=== PATIENT | male | born 1990 | race Caucasian/White ===

== ENCOUNTER 2022-04-30 10:46 | Emergency (ER) | payer MEDICAID, SELFPAY ==
[2022-04-30 10:47] VITALS: BP 127/69; PULSE 68; RESP 18; TEMP 36.8; O2SAT 100; BMI 31.1
--- NOTE | 2022-04-30 11:02 | ED.GENADULT ---
HPI - General Adult General Chief complaint: General Medical Stated complaint: missed methadone appointment Time Seen by Provider: 04/30/22 10:52 Source: patient Mode of arrival: ambulatory Limitations: no limitations History of Present Illness HPI narrative: 32-year-old male with history of anxiety, depression, opiate use disorder here with reports of seeking methadone dose. Patient tells me he was at a [facility] in [place] and on he transitioned to [facility] on [facility]. His last dose of methadone was yesterday 100 mg. He received at a clinic in [place]. He was supposed to go to a clinic and [place] today however arrived after they closed. He was unable to receive a dose today. Patient also complaining of depression, anxiety. He denies any suicidal thoughts. He was recently started on Prozac but feels like it is not helping. He would like to speak to crisis and discussed his medications. He does for primary care doctor that prescribes his medications. He is waiting for a psychiatrist. He does have a therapist. Related Data Home Medications Medication Instructions Recorded Confirmed clonazepam 0.5 mg tablet 1 tab PO BID 04/30/22 04/30/22 fluoxetine 20 mg capsule 1 cap PO DAILY 04/30/22 04/30/22 hydroxyzine HCl 25 mg tablet 1 tab PO TID PRN anxiety 04/30/22 04/30/22 ibuprofen 400 mg tablet 1 tab PO Q4H PRN pain 04/30/22 04/30/22 melatonin 3 mg tablet 1 tab PO BEDTIME PRN Sleep 04/30/22 04/30/22 methadone 10 mg/mL oral concentrate 100 mg PO DAILY 04/30/22 04/30/22 nicotine (polacrilex) 4 mg buccal 1 cornelio PO Q2H PRN cravings 04/30/22 04/30/22 lozenge nicotine 21 mg/24 hr daily 1 patch topical DAILY 04/30/22 04/30/22 transdermal patch trazodone 50 mg tablet 1 tab PO BEDTIME 04/30/22 04/30/22 Allergies Allergy/AdvReac Type Severity Reaction Status Date / Time No Known Allergies Allergy Verified 04/30/22 10:51 Review of Systems Review of Systems: Yes all other systems are reviewed and are negative Constitutional: Constitutional: Reports no additional constitutional complaints, Denies body ache(s), Denies chills, Denies fever(s), Denies headache(s) and Denies weakness Eyes: Eyes: Reports no additional eye complaints and Denies change in vision ENT: Reports system reviewed and no additional complaints, except as documented, Denies dizziness, Denies headache(s), Denies nasal congestion, Denies nasal discharge and Denies neck pain Cardiovascular: Cardiovascular: Reports no additional cardiovascular complaints, Denies chest pain, Denies leg edema and Denies dyspnea Respiratory: Respiratory: Reports no additional respiratory complaints, Denies cough and Denies dyspnea Gastrointestinal: Gastrointestinal: Reports no additional gastrointestinal complaints, Denies abdominal pain, Denies diarrhea, Denies nausea and Denies vomiting Genitourinary: Genitourinary: Denies urinary incontinence Musculoskeletal: Musculoskeletal: Reports no additional musculoskeletal complaints, Denies back pain, Denies arthralgias, Denies joint swelling, Denies neck pain, Denies numbness and Denies tingling Integumentary/Breasts: Skin/Breast: Reports system reviewed and no additional complaints, except as docu and Denies rash Neurologic: Reports system reviewed and no additional complaints, except as documented, Denies dizziness, Denies headache(s), Denies numbness, Denies tingling and Denies weakness Psychiatric: Psychiatric: Reports anxiety, Reports depression, Denies homicidal ideation and Denies suicidal ideation [facility] Past Medical History Attestation statement: The following information was validated with the patient. Source: old records reviewed and nursing notes reviewed Social History Social History Advance Directives: No Advance Directives Information Provided: No Physical Exam ED Vital Signs: Vital Signs - 24 hr 04/30/22 10:47 04/30/22 12:00 Temperature 98.2 F Pulse Rate 68 18 L Respiratory Rate 18 Blood Pressure 127/69 Pulse Oximetry 100 Oxygen Delivery Method Room Air BMI result Body Mass Index 31.1 Const General: cooperative, healthy appearing and comfortable Orientation/consciousness: patient oriented x3 Limitations: no limitations HENMT Head: Yes normal to inspection Ears: hearing grossly normal bilaterally Eyes General: appearance normal, both eyes and all related structures Pupils: Equal, round and reactive pupils present Neck Neck: Yes normal visual inspection Chest Chest palpation & inspection: normal inspection of the chest Resp Effort & Inspection: normal respiratory effort Auscultation: clear to auscultation bilaterally Cardio Rate: regular rate Rhythm: regular rhythm Peripheral pulses: Peripheral pulses 2+ throughout GI Inspection: Yes normal to inspection Back/Spine/Pelvis Thoracic/Lumbar Spine: thoracic and lumbar spine normal to inspection Skin General skin exam: no rashes or lesions noted Neuro General: patient oriented x3 Cranial nerves: Yes CN's II-XII intact bilaterally and Yes Equal, round and reactive pupils present Course Course Course Narrative: 32-year-old male with a history of opiate use disorder, depression and anxiety here seeking his methadone dose as well as seeking to speak to crisis. No suicidal thoughts. No concern for acute ingestion or trauma. Nursing to verify his methadone dose. Will obtain a N consult Reevaluation(s) Reevaluation #1: Seen by care team Delay and patient receiving his methadone as he does not have his last dose letter. Nursing has attempted to reach his clinic but unable to. Patient is currently staying at [facility] on [facility] and contact was made with staff there to see if they have his last dose letter. Waiting to hear back Time: 13:45 Reevaluation #2: Methadone dose was confirmed and ordered. Patient to go back to [facility] Reviewed worrisome signs and symptoms of when to return to the emergency department. Comfortable discharge home. Time: 15:00 Medical Decision Making Medical Records Medical records reviewed: Yes I reviewed the patient's medical records. Lab Data Lab results reviewed: Yes I reviewed the patient's lab results. Labs: Lab Results 04/30/22 04/30/22 Range/Units 11:34 11:34 Urine Opiates Screen Not Detected (Not Detect) Urine Fentanyl Screen POSITIVE H (Not Detect) Ur Barbiturates Screen Not Detected (Not Detect) Ur Phencyclidine Scrn Not Detected (Not Detect) Ur Amphetamines Screen Not Detected (Not Detect) U Benzodiazepines Scrn POSITIVE H (Not Detect) Urine Cocaine Screen POSITIVE H (Not Detect) U Marijuana (THC) Screen Not Detected (Not Detect) COVID-19 ([facility]) Negative (Negative) COVID-19 Clin Com See Note Discharge Plan Discharge Clinical Impression: Depression, Medication refill Patient Disposition: Home, Self-Care Instructions: Depression (ED), Medicine Refill (ED) Additional Instructions: Follow-up with your outpatient providers You received your dose of methadone while you were here Prescriptions: No Action trazodone 50 mg tablet 1 tab PO BEDTIME clonazepam 0.5 mg tablet 1 tab PO BID melatonin 3 mg tablet 1 tab PO BEDTIME PRN (Reason: Sleep) ibuprofen 400 mg tablet 1 tab PO Q4H PRN (Reason: pain) nicotine 21 mg/24 hr patch 24 hour 1 patch topical DAILY hydroxyzine HCl 25 mg tablet 1 tab PO TID PRN (Reason: anxiety) fluoxetine 20 mg capsule 1 cap PO DAILY nicotine (polacrilex) 4 mg lozenge 1 cornelio PO Q2H PRN (Reason: cravings) methadone 10 mg/mL Concentrate 100 mg PO DAILY Referrals: Chalino Alston MD [Primary Care Provider] - 1 week (As needed) Interventions: ED Discharge Assessment Last Done: 04/30/22 15:17 Discharge Date/Time: 04/30/22 15:18
--- NOTE | 2022-04-30 11:16 | PC.NURSE ---
this rn left msg with [facility] msg service to verify methadone dose.
--- NOTE | 2022-04-30 11:21 | PC.NURSE ---
pt making statements that he is depressed, no si or hi at this time, wants to speak to crisis.
[2022-04-30 11:54] LABS: COVID-19 Test Negative (Negative); IDNOW Serial# 16C4AD1C
[2022-04-30 11:56] LABS: Amphetamine Screen Urine Not Detected (Not Detect); Barbiturates, Urine Not Detected (Not Detect); Benzodiazepines Screen Urine POSITIVE (Not Detect); Cannabinoid Screen Urine Not Detected (Not Detect); Cocaine Screen Urine POSITIVE (Not Detect); Fentanyl, urine POSITIVE (Not Detect); Opiate Screen Urine Not Detected (Not Detect); Phencyclidine Screen Urine Not Detected (Not Detect)
[2022-04-30 12:00] VITALS: PULSE 18
[2022-04-30] MEDS: Nicotine 21 MG PATCH.TD24 TRANSDERMA (12:06)
--- NOTE | 2022-04-30 12:54 | PC.NURSE ---
CALLED METHADONE CLINIC LEFT MESSAGE, TO GET DOSING. LEFT MESSAGE.
--- NOTE | 2022-04-30 13:05 | PC.NURSE ---
WILL CALL [facility] TO TRY TO GET COPY OF LAST DOSE LETTER
--- NOTE | 2022-04-30 13:48 | PHA.MEDREC ---
Pharmacy Consult ? Medication Reconciliation Pharmacy has completed the medication reconciliation. Waiting on methadone verification
--- NOTE | 2022-04-30 14:03 | MHC.CARE ---
CARE placed a call to [facility] regarding medication verification and also call to pts mother at his request who can assist in obtaining this letter or help with transport back to [facility]. CARE enlisted support of Recovery team to assist in this as well. CARE spoke w pts ED Provider (Krysta COPE) to have med order for his anxiety med that pharmacy just verified. [facility] agreed to fax pts Methadone dose letter in order to be able to obtain a dose while in the ED. Pt continues to deny SI, self harm ideation, aor aggression or HI at this time. Pt stated he was never suicidal and was not looking to seek crisis but panicked when could not get dose (of methadone) by missing the appointment by 10 minutes. Pt plans to return to [facility] if can have methadone dose here. Pt does not present with any psychosis or delusions and reported that he is not feeling acutely depressed. Pt indicated that his acute anxiety upon arrival was the result of the missed medication with desire to continue to abstain from substances and continue his recovery. Pt is cooperative in interview w CARE and provided consent for all collateral contacts w TSS, mother and providers here. Pt reported feeling increased anxiety currently only due to the missed medication dosage and feels worried that he will miss another day of dosing. Pt is cleared by CARE for further psychiatric intervention at this time.
[2022-04-30] MEDS: clonazePAM 0.5 MG TABLET PO (14:08)
[2022-04-30] MEDS: Ondansetron ODT 4 MG TAB.RAPDIS TRANSLINGU (14:08)
--- NOTE | 2022-04-30 15:12 | MHC.RECOVSUP ---
Recovery Support note: Patient is a 32 year old [place] speaking male who presented to [facility] ED due to missing his methadone dose. Patient reports he is currently staying at the [facility] on [facility]. Last dose letter faxed to [facility] and RN filled out pharmacy verification. Discussed case with patient and patient's mother. Patient reports he is comfortable discharging and having his mother transport him back to the program once he gets his dose. Discussed case with ED provider.
[2022-04-30] MEDS: methADONE HCl 20 MG/2 ML ORAL.CONC 100 MG PO (15:15)
== END 2022-04-30 15:18 | disposition home or self-care (01) ==
PROVIDERS: Nurse Practitioner Family; Emergency Provider Emergency Medicine; PCP Family Medicine
DX: F32.A Depression, unspecified (principal); Z76.0 Encounter for issue of repeat prescription; F11.20 Opioid dependence, uncomplicated; F41.9 Anxiety disorder, unspecified; Z79.899 Other long term (current) drug therapy; Z20.822 Contact with and (suspected) exposure to COVID-19
CPT/HCPCS: 80307; 87635; 99284